=== PATIENT | female | born 1975 | race Hispanic/Latino ===

== ENCOUNTER → 2017-11-21 | Outpatient (CLI) | payer MEDICAID | END | disposition home or self-care (01) | LOC: RAH 14:50 | PROVIDERS: ATTEND Internal Medicine | DX: N63.20 Unspecified lump in the left breast, unspecified quadrant (principal); R92.2 Inconclusive mammogram | CPT/HCPCS: 76641; 77066 ==

== ENCOUNTER 2018-03-25 17:18 | Emergency (ER) | payer MEDICAID ==
[2018-03-25 18:00] LABS: APPEARANCE,URINE Cloudy (CLEAR); BILIRUBIN,URINE Negative (NEGATIVE); COLOR,URINE Dark Yellow (YELLOW); GLUCOSE, URINE (UA) Negative (NEGATIVE); KETONES,URINE Trace mg/dL (NEGATIVE); LEUKOCYTE ESTERASE ,URINE Large (NEGATIVE); NITRATE,URINE Positive (NEGATIVE); OCCULT BLOOD,URINE Moderate (NEGATIVE); PH,URINE 5.5 (5.0-8.0); PROTEIN,URINE POS 2+ (NEGATIVE); UROBILINOGEN,URINE 0.2 mg/dL (0.2-1.0)
[2018-03-25 18:08] LABS: BASOPHILS % (AUTO) 0.6 % (0.0-5.0); EOSINOPHILS % (AUTO) 1.4 % (0.0-8.0); HEMATOCRIT 41.1 % (36-48); MEAN CORPUSCULAR HEMOGLOBIN 29.8 pg (27.0-33.0); MEAN CORPUSCULAR HGB CONC 34.4 g/dL (32.0-36.0); MEAN CORPUSCULAR VOLUME 86.6 fL (79-99); MONOCYTES % (AUTO) 4.6 % (3.0-13.0); NEUTROPHILS % (AUTO) 78.4 % (40.0-77.0); PLATELET COUNT (AUTO) 355 K/uL (130-400); RED BLOOD CELL COUNT(AUTO) 4.75 MIL/uL (4.00-5.50); RED CELL DISTRIBUTION WIDTH 12.5 % (11.0-15.5); WHITE BLOOD COUNT (AUTO) 16.3 K/uL (4.8-10.8)
[2018-03-25 18:17] LABS: BACTERIA,URINE Many /HPF (None Seen); RBC,URINE None Seen /HPF (0-1)
[2018-03-25 18:18] LABS: SQUAMOUS EPITHELIAL CELL,UR 0-2 /HPF (0-2); WBC,URINE >100 /HPF (0-1)
[2018-03-25 18:20] LABS: CREATININE 0.7 mg/dL (0.5-1.5); POTASSIUM 3.9 mmol/L (3.5-5.1)
[2018-03-25 18:25] LABS: ALBUMIN 3.5 g/dL (3.5-5.0); BILIRUBIN,TOTAL 0.3 mg/dL (0.2-1.0); TOTAL PROTEIN, SERUM 7.4 g/dL (6.0-8.3)
[2018-03-25] MEDS ORDERED: TAMSULOSIN HCL 0.4 MG CAP.ER.24H ONE (18:34)
[2018-03-25] MEDS ORDERED: ONDANSETRON HCL 4 MG/2 ML VIAL ONE (18:34)
[2018-03-25] MEDS ORDERED: KETOROLAC TROMETHAMINE 15MG/ML ONE (18:34)
[2018-03-25] MEDS ORDERED: CEFTRIAXONE IV ONE (19:50)
[2018-03-25] MEDS ORDERED: DEXTROSE IV ONE (19:50)
[2018-03-25] MEDS ORDERED: 0.9% SODIUM CHLORIDE 1000 ML IV BAG IV ONE (19:50)
== END 2018-03-25 21:21 | disposition home or self-care (01) ==
LOC: EDH 17:18
DX: N12 Tubulo-interstitial nephritis, not specified as acute or chronic (principal); Z88.0 Allergy status to penicillin; M79.1 Myalgia
CPT/HCPCS: 36415; 74176; 80053; 81001; 81025; 83605; 83690; 85025; 87088; 87186; 96374; 96375; 99285; J0696 ×2; J1885 ×2; J2405; J7030 ×2

== ENCOUNTER 2018-12-28 13:12 | Emergency (ER) | payer MEDICAID | END 2018-12-28 14:47 | disposition home or self-care (01) | LOC: EDH 13:12 | DX: R07.0 Pain in throat (principal); E11.9 Type 2 diabetes mellitus without complications; J45.909 Unspecified asthma, uncomplicated; Z90.49 Acquired absence of other specified parts of digestive tract; Z79.4 Long term (current) use of insulin; Z88.0 Allergy status to penicillin | CPT/HCPCS: 70490 ==

== ENCOUNTER 2019-12-13 04:49 | Emergency (ER) | payer MEDICAID ==
[2019-12-13 05:12] LABS: BASOPHILS % (AUTO) 0.6 % (0.0-5.0); EOSINOPHILS % (AUTO) 4.8 % (0.0-8.0); HEMATOCRIT 43.1 % (36-48); LYMPHOCYTES % (AUTO) 33.6 % (21.0-51.0); MEAN CORPUSCULAR HEMOGLOBIN 29.2 pg (27.0-33.0); MEAN CORPUSCULAR HGB CONC 32.5 g/dL (32.0-36.0); MEAN CORPUSCULAR VOLUME 89.8 fL (79-99); MONOCYTES % (AUTO) 5.9 % (3.0-13.0); NEUTROPHILS % (AUTO) 54.8 % (40.0-77.0); PLATELET COUNT (AUTO) 330 K/uL (130-400); RED CELL DISTRIBUTION WIDTH 12.8 % (11.0-15.5); WHITE BLOOD COUNT (AUTO) 11.1 K/uL (4.8-10.8)
[2019-12-13 05:23] LABS: CREATININE 0.6 mg/dL (0.5-1.5); POTASSIUM 3.2 mmol/L (3.5-5.1)
[2019-12-13 05:29] LABS: ALBUMIN 3.4 g/dL (3.5-5.0); BILIRUBIN,TOTAL 0.5 mg/dL (0.2-1.0)
[2019-12-13] MEDS ORDERED: BENZONATATE 100 MG CAPSULE PO ONE (05:35)
[2019-12-13] MEDS ORDERED: POTASSIUM BICARB/CIT AC 25 MEQ TABLET.EFF ONE (05:37)
[2019-12-13] MEDS ORDERED: IPRATROPIUM/ALBUTEROL SULFATE 3 ML SOLUTION IH ONE (06:31)
== END 2019-12-13 06:46 | disposition home or self-care (01) ==
LOC: EDH 04:49
DX: J20.9 Acute bronchitis, unspecified (principal); E11.9 Type 2 diabetes mellitus without complications; J45.909 Unspecified asthma, uncomplicated; M79.7 Fibromyalgia; L93.0 Discoid lupus erythematosus; Z88.0 Allergy status to penicillin
CPT/HCPCS: 36415; 71045; 80053; 85025; 87804; 94640

== ENCOUNTER 2023-03-07 23:27 | Emergency (ER) | payer MEDICAID ==
[~2023-03-07] VITALS: Ht 165.1 cm; Wt 90.7 kg
[2023-03-08] MEDS ORDERED: LORAZEPAM 2 MG/ML 1 ML VIAL IVP ONE
[2023-03-08] MEDS ORDERED: KETOROLAC 15MG/ML VIAL (15MG/ML) IV ONE
[2023-03-08 00:09] LABS: BASOPHILS % (AUTO) 0.3 % (0.0-5.0); EOSINOPHILS % (AUTO) 0.2 % (0.0-8.0); HEMATOCRIT 44.2 % (36-48); LYMPHOCYTES % (AUTO) 17.1 % (21.0-51.0); MEAN CORPUSCULAR HEMOGLOBIN 29.2 pg (27.0-33.0); MEAN CORPUSCULAR HGB CONC 32.4 g/dL (32.0-36.0); MEAN CORPUSCULAR VOLUME 90.4 fL (79-99); MONOCYTES % (AUTO) 4.1 % (3.0-13.0); NEUTROPHILS % (AUTO) 77.9 % (40.0-77.0); PLATELET COUNT (AUTO) 289 K/uL (130-400); RED BLOOD CELL COUNT(AUTO) 4.89 MIL/uL (4.00-5.50); RED CELL DISTRIBUTION WIDTH 12.6 % (11.0-15.5); WHITE BLOOD COUNT (AUTO) 12.2 K/uL (4.8-10.8)
[2023-03-08 00:25] LABS: CREATININE 0.6 mg/dL (0.5-1.5)
[2023-03-08 00:27] LABS: APPEARANCE,URINE CLEAR (CLEAR); BILIRUBIN,URINE NEGATIVE (NEGATIVE); COLOR,URINE LIGHT-YELLOW (YELLOW); GLUCOSE, URINE (UA) >=1000 mg/dL (NEGATIVE); HCG,QUALITATIVE URINE NEGATIVE (NEGATIVE); KETONES,URINE 5 mg/dL (NEGATIVE); LEUKOCYTE ESTERASE ,URINE NEGATIVE Leu/uL (NEGATIVE); NITRATE,URINE NEGATIVE (NEGATIVE); OCCULT BLOOD,URINE NEGATIVE (NEGATIVE); PROTEIN,URINE 20 mg/dL (NEGATIVE); UROBILINOGEN,URINE 0.2 mg/dL (0.2-1.0)
[2023-03-08 00:29] LABS: MUCUS,URINE RARE LPF (None Seen); RBC,URINE 0-1 /HPF (0-1); SQUAMOUS EPITHELIAL CELL,UR RARE /HPF (0-2)
[2023-03-08 00:30] LABS: ALBUMIN 3.8 g/dL (3.5-5.0); TOTAL PROTEIN, SERUM 7.6 g/dL (6.0-8.3)
[2023-03-08] MEDS ORDERED: POTASSIUM BICARB/CIT AC 25 MEQ TABLET.EFF PO ONE (01:00)
[2023-03-08 01:54] VITALS: BP 123/65
[2023-03-08] MEDS ORDERED: HYDROCODONE/ACETAMINOPHEN 5/325 MG TAB PO ONE (02:00)
[2023-03-08] MEDS ORDERED: TRAM100T40 PO (02:04)
== END 2023-03-08 03:32 | disposition home or self-care (01) ==
LOC: EEVIPCON 23:27 → EDH 23:27
DX: S00.531A Contusion of lip, initial encounter (principal); T74.21XA Adult sexual abuse, confirmed, initial encounter; E11.9 Type 2 diabetes mellitus without complications; E78.00 Pure hypercholesterolemia, unspecified; Z88.8 Allergy status to other drugs, medicaments and biological substances; X58.XXXA Exposure to other specified factors, initial encounter; Y93.89 Activity, other specified; Y92.098 Other place in other non-institutional residence as the place of occurrence of the external cause; Y99.8 Other external cause status
CPT/HCPCS: 99285; 71045; 80053; 85025; 81001; 81025; 36415; 73521; 73030 ×2; 70450; 96374; 96375; 73600; 72125; J2060; J1885

== ENCOUNTER 2023-04-03 01:00 | Observation (INO) | payer MEDICAID ==
[~2023-04-03] VITALS: Ht 165.1 cm; Wt 93.2 kg
[~2023-04-03 01:00] MED LIST: TRAM100T40 PO
[2023-04-03 01:54] LABS: BASOPHILS % (AUTO) 0.3 % (0.0-5.0); EOSINOPHILS % (AUTO) 1.2 % (0.0-8.0); HEMATOCRIT 39.2 % (36-48); LYMPHOCYTES % (AUTO) 32.7 % (21.0-51.0); MEAN CORPUSCULAR HEMOGLOBIN 29.7 pg (27.0-33.0); MEAN CORPUSCULAR HGB CONC 33.7 g/dL (32.0-36.0); MEAN CORPUSCULAR VOLUME 88.1 fL (79-99); MONOCYTES % (AUTO) 5.3 % (3.0-13.0); PLATELET COUNT (AUTO) 303 K/uL (130-400); RED BLOOD CELL COUNT(AUTO) 4.45 MIL/uL (4.00-5.50); RED CELL DISTRIBUTION WIDTH 12.3 % (11.0-15.5); WHITE BLOOD COUNT (AUTO) 11.3 K/uL (4.8-10.8)
[2023-04-03] MEDS ORDERED: ONDANSETRON 4MG INJ IVP ONE (02:00)
[2023-04-03] MEDS ORDERED: 0.9%NACL 1000ML 1,000 ML IV ONE (02:00)
[2023-04-03 02:03] LABS: APPEARANCE,URINE CLEAR (CLEAR); BILIRUBIN,URINE NEGATIVE (NEGATIVE); COLOR,URINE LIGHT-YELLOW (YELLOW); GLUCOSE, URINE (UA) >=1000 mg/dL (NEGATIVE); KETONES,URINE 10 mg/dL (NEGATIVE); LEUKOCYTE ESTERASE ,URINE 25 Leu/uL (NEGATIVE); NITRATE,URINE NEGATIVE (NEGATIVE); OCCULT BLOOD,URINE NEGATIVE (NEGATIVE); PH,URINE 5.5 (5.0-8.0); PROTEIN,URINE 10 mg/dL (NEGATIVE); UROBILINOGEN,URINE 0.2 mg/dL (0.2-1.0)
[2023-04-03 02:05] LABS: CREATININE 0.6 mg/dL (0.5-1.5); POTASSIUM 3.6 mmol/L (3.5-5.1)
[2023-04-03 02:09] LABS: ALBUMIN 3.4 g/dL (3.5-5.0); MUCUS,URINE RARE LPF (None Seen); SQUAMOUS EPITHELIAL CELL,UR RARE /HPF (0-2); TOTAL PROTEIN, SERUM 6.8 g/dL (6.0-8.3)
[2023-04-03] MEDS ORDERED: MORPHINE 4 MG SYG ONE (02:17)
[2023-04-03] MEDS ORDERED: IOHEXOL 350 MG/ML 100ML INFUS..BTL IV ONE (02:25)
[2023-04-03] MEDS ORDERED: MORPHINE 4 MG SYG IVP ONE (02:30)
[2023-04-03] MEDS ORDERED: MORPHINE 2 MG SYG IVP PRN (04:30)
[2023-04-03] MEDS ORDERED: ACETAMINOPHEN 325 MG TAB PO PRN (04:30)
[2023-04-03 05:50] VITALS: BP 109/68
[2023-04-03] MEDS ORDERED: EMPA25TA PO (07:07)
[2023-04-03] MEDS ORDERED: METF-446 PO (07:07)
[2023-04-03] MEDS ORDERED: INSU100I47 SQ (07:07)
[2023-04-03] MEDS ORDERED: DULA1.5P SQ (07:07)
[2023-04-03] MEDS ORDERED: TRAM50TA4 PO (07:09)
[2023-04-03] MEDS ORDERED: RAMI5CAP66 PO (07:09)
[2023-04-03 08:00] VITALS: BP 109/64
[2023-04-03] MEDS ORDERED: SULFAMETHOX-TMP DS 800/160 TAB PO SCH (09:00)
[2023-04-03 12:00] VITALS: BP 125/82
[2023-04-03] MEDS ORDERED: ZOSYN 3.375GM +NS 50ML IVPB SCH (12:00)
[2023-04-03] MEDS ORDERED: ONDANSETRON 4MG INJ IV PRN (12:00)
[2023-04-03] MEDS ORDERED: 0.9%NACL 50ML IV SCH (12:00)
[2023-04-03] MEDS ORDERED: HYDRALAZINE 20MG/ML VIAL IV PRN (12:00)
[2023-04-03] MEDS ORDERED: HYDROMORPHONE 0.5 MG SYG (0.5MG/0.5ML) IVP PRN (12:00)
[2023-04-03] MEDS ORDERED: 0.9%NACL 1000ML 1,000 ML IV SCH (12:00)
[2023-04-03] MEDS ORDERED: BISACODYL 10 MG SUPP.RECT RC ONE (13:00)
[2023-04-03] MEDS ORDERED: NICOTINE 21 MG/ 24 HR PATCH TD SCH (13:00)
[2023-04-04] MEDS ORDERED: PANTOPRAZOLE 40 MG/VIAL IV SCH (09:00)
[2023-04-04] MEDS ORDERED: ENOXAPARIN SODIUM 40 MG/0.4 ML SYRINGE SQ SCH (09:00)
[2023-04-04] MEDS ORDERED: NICOTINE 21 MG/ 24 HR PATCH TD SCH (09:00)
== END 2023-04-03 17:30 | disposition home or self-care (01) ==
LOC: EDH 01:00 → EDHIP 01:01 → 4BH 05:26
PROVIDERS: ADMIT Internal Medicine; ATTEND Internal Medicine
DX: K42.9 Umbilical hernia without obstruction or gangrene (principal); R10.9 Unspecified abdominal pain; E11.9 Type 2 diabetes mellitus without complications; I10 Essential (primary) hypertension; E66.9 Obesity, unspecified; F17.210 Nicotine dependence, cigarettes, uncomplicated; K21.9 Gastro-esophageal reflux disease without esophagitis; K42.0 Umbilical hernia with obstruction, without gangrene; M79.7 Fibromyalgia; N39.0 Urinary tract infection, site not specified; Z68.34 Body mass index [BMI] 34.0-34.9, adult; Z79.899 Other long term (current) drug therapy; Z98.890 Other specified postprocedural states
CPT/HCPCS: 96361; 96365; 96375; 99285; 80053; 83690; 85025; 87040 ×2; 87088; 83605 ×2; 81001; 81025; 36415; 74177; G0378 ×13; J2270; J2543; Q9967

== ENCOUNTER 2023-04-08 11:26 | Emergency (ER) | payer MEDICAID ==
[~2023-04-08] VITALS: Ht 165.1 cm; Wt 91.6 kg
[~2023-04-08 11:26] MED LIST changes: +DULA1.5P SQ; +EMPA25TA PO; +INSU100I47 SQ; +METF-446 PO; +RAMI5CAP66 PO; +TRAM50TA4 PO
[2023-04-08] MEDS ORDERED: KETOROLAC 15MG/ML VIAL (15MG/ML) IM ONE (13:30)
[2023-04-08 15:05] VITALS: BP 103/63
== END 2023-04-08 14:52 | disposition home or self-care (01) ==
LOC: EDH 11:26
DX: S93.601A Unspecified sprain of right foot, initial encounter (principal); E11.9 Type 2 diabetes mellitus without complications; M79.7 Fibromyalgia; Z79.84 Long term (current) use of oral hypoglycemic drugs; Z90.49 Acquired absence of other specified parts of digestive tract; W01.10XA Fall on same level from slipping, tripping and stumbling with subsequent striking against unspecified object, initial encounter; Y93.89 Activity, other specified; Y92.89 Other specified places as the place of occurrence of the external cause; Y99.8 Other external cause status
CPT/HCPCS: 99284; 82948; 73600; 73630; 96372; J1885

== ENCOUNTER 2023-04-21 09:01 | Emergency (ER) | payer MEDICAID ==
[~2023-04-21] VITALS: Ht 165.1 cm; Wt 90.7 kg
[2023-04-21] MEDS ORDERED: ACETAMINOPHEN 500 MG TABLET PO ONE (12:30)
[2023-04-21 13:08] VITALS: BP 148/85
[2023-04-21] MEDS ORDERED: NAPR-1180 PO (13:36)
== END 2023-04-21 14:10 | disposition home or self-care (01) ==
LOC: EDH 09:01
DX: M79.604 Pain in right leg (principal); E11.9 Type 2 diabetes mellitus without complications; M79.7 Fibromyalgia; Z79.84 Long term (current) use of oral hypoglycemic drugs; Z90.49 Acquired absence of other specified parts of digestive tract
CPT/HCPCS: 93971

== ENCOUNTER 2023-04-24 16:18 | Emergency (ER) | payer MEDICAID ==
[~2023-04-24] VITALS: Ht 165.1 cm; Wt 92.5 kg
[~2023-04-24 16:18] MED LIST changes: +NAPR-1180 PO
[2023-04-24 16:24] VITALS: BP 118/72
== END 2023-04-24 20:09 | disposition left against medical advice (07) ==
LOC: EDH 16:18
DX: R10.9 Unspecified abdominal pain (principal); Z53.21 Procedure and treatment not carried out due to patient leaving prior to being seen by health care provider
CPT/HCPCS: 71045; 93005; 99281

== ENCOUNTER 2023-07-01 22:30 | Emergency (ER) | payer MEDICAID ==
[~2023-07-01] VITALS: Ht 165.1 cm; Wt 92.1 kg
[2023-07-01] MEDS ORDERED: 0.9%NACL 1000ML 1,000 ML IV ONE (23:00)
[2023-07-01] MEDS ORDERED: FAMOTIDINE 20MG VIAL IV ONE (23:00)
[2023-07-01] MEDS ORDERED: METOCLOPRAMIDE 10 MG/2 ML VIAL IVP ONE (23:00)
[2023-07-01] MEDS ORDERED: HYDROXYZINE 25 MG TABLET PO ONE (23:00)
[2023-07-01 23:12] LABS: BASOPHILS # (AUTO) 0.04 K/uL (0.00-0.20); BASOPHILS % (AUTO) 0.3 % (0.0-5.0); EOSINOPHILS # (AUTO) 0.14 K/uL (0.00-0.70); EOSINOPHILS % (AUTO) 1.2 % (0.0-8.0); HEMATOCRIT 39.5 % (36-48); IMMATURE GRANULOCYTE ABSOLUTE 0.04 K/uL (0-1); LYMPHOCYTES # (AUTO) 2.7 K/uL (1.0-4.8); MEAN CORPUSCULAR HEMOGLOBIN 29.6 pg (27.0-33.0); MEAN CORPUSCULAR HGB CONC 34.4 g/dL (32.0-36.0); MEAN CORPUSCULAR VOLUME 86.1 fL (79-99); MONOCYTES # (AUTO) 0.6 K/uL (0.1-1.0); NEUTROPHILS # (AUTO) 8.1 K/uL (1.8-7.7); NEUTROPHILS % (AUTO) 70.2 % (40.0-77.0); PLATELET COUNT (AUTO) 253 K/uL (130-400); RED BLOOD CELL COUNT(AUTO) 4.59 MIL/uL (4.00-5.50); RED CELL DISTRIBUTION WIDTH 12.2 % (11.0-15.5); WHITE BLOOD COUNT (AUTO) 11.5 K/uL (4.8-10.8)
[2023-07-01 23:24] LABS: COVID19 (SARS ANTIGEN RAPID) PRESUMPTIVE NEGATIVE (NEGATIVE); INFLUENZA TYPE A Negative For Type A (NEGATIVE); INFLUENZA TYPE B Negative For Type B (NEGATIVE)
[2023-07-01 23:42] LABS: CARBON DIOXIDE 26 mmol/L (21-32); CHLORIDE 101 mmol/L (101-111); CREATININE 0.8 mg/dL (0.5-1.5); GLOMERULAR FILTR. RATE CALC 90 mL/min (>90); POTASSIUM 3.9 mmol/L (3.5-5.1); SODIUM SERUM 138 mmol/L (136-145); THYROID STIMULATING HORMONE 0.62 uIU/mL (0.36-3.74); UREA NITROGEN, BLOOD 14 mg/dL (7-18)
[2023-07-01 23:43] LABS: ALCOHOL, BLOOD < 3 mg/dL (0-10); GLUCOSE,RANDOM 468 mg/dL (70-105)
[2023-07-02] LABS: ADD UA MICROSCOPIC YES; APPEARANCE,URINE CLEAR (CLEAR); BILIRUBIN,URINE NEGATIVE (NEGATIVE); COLOR,URINE COLORLESS (YELLOW); GLUCOSE, URINE (UA) >=1000 mg/dL (NEGATIVE); KETONES,URINE NEGATIVE (NEGATIVE); LEUKOCYTE ESTERASE ,URINE NEGATIVE Leu/uL (NEGATIVE); NITRATE,URINE NEGATIVE (NEGATIVE); OCCULT BLOOD,URINE NEGATIVE (NEGATIVE); PH,URINE 6.5 (5.0-8.0); PROTEIN,URINE NEGATIVE (NEGATIVE); UROBILINOGEN,URINE 0.2 mg/dL (0.2-1.0)
[2023-07-02 00:04] LABS: AMPHET/METH SCREEN,URINE NEGATIVE (NEGATIVE); BARBITURATE SCREEN, URINE NEGATIVE (NEGATIVE); BENZODIAZEPINES SCREEN,URINE NEGATIVE (NEGATIVE); CANNABINOID SCREEN,URINE NEGATIVE (NEGATIVE); COCAINE SCREEN,URINE POSITIVE (NEGATIVE); OPIATE SCREEN,URINE NEGATIVE (NEGATIVE); PHENCYCLIDINE SCREEN,URINE NEGATIVE (NEGATIVE)
[2023-07-02] MEDS ORDERED: LORAZEPAM 2 MG/ML 1 ML VIAL IVP ONE (01:00)
[2023-07-02] MEDS ORDERED: MAGNESIUM OXIDE 400 MG TABLET PO ONE (01:00)
[2023-07-02] MEDS ORDERED: INSULIN HUMULIN R 100 UNIT/ML 3ML IV ONE (01:00)
[2023-07-02] MEDS ORDERED: LACTATED RINGERS 1000ML 1,000 ML IV SCH (03:30)
[2023-07-02] MEDS ORDERED: 0.9%NACL 1000ML 1,000 ML IV SCH (04:30)
[2023-07-02 07:58] VITALS: BP 124/78; PULSE 78; RESP 18; O2SAT 98
== END 2023-07-02 08:00 | disposition home or self-care (01) ==
LOC: EDH 22:30
DX: F14.10 Cocaine abuse, uncomplicated (principal); E11.65 Type 2 diabetes mellitus with hyperglycemia; G43.909 Migraine, unspecified, not intractable, without status migrainosus; Z79.84 Long term (current) use of oral hypoglycemic drugs; Z20.822 Contact with and (suspected) exposure to COVID-19
CPT/HCPCS: 99285; 96374; 70450; 71045; 96361 ×2; 96375 ×2; 87426; 84443; 83735; 84484; 80048; 80305; 85025; 87804 ×2; 82948; 83605; 82010; 81001; 36415; 93005; J7030; J2765; J1815; J7120; J2060; S0028; J3490

== ENCOUNTER 2023-08-25 03:29 | Emergency (ER) | payer MEDICAID ==
[~2023-08-25] VITALS: Ht 165.1 cm; Wt 82.6 kg
[2023-08-25] MEDS ORDERED: ONDANSETRON 4MG INJ IVP ONE (04:00)
[2023-08-25 04:01] LABS: BASOPHILS # (AUTO) 0.03 K/uL (0.00-0.20); BASOPHILS % (AUTO) 0.3 % (0.0-5.0); EOSINOPHILS # (AUTO) 0.05 K/uL (0.00-0.70); EOSINOPHILS % (AUTO) 0.5 % (0.0-8.0); HEMATOCRIT 44.6 % (36-48); IMMATURE GRANULOCYTE ABSOLUTE 0.04 K/uL (0-1); LYMPHOCYTES # (AUTO) 3.3 K/uL (1.0-4.8); LYMPHOCYTES % (AUTO) 33.2 % (21.0-51.0); MEAN CORPUSCULAR HEMOGLOBIN 29.4 pg (27.0-33.0); MEAN CORPUSCULAR HGB CONC 33.9 g/dL (32.0-36.0); MEAN CORPUSCULAR VOLUME 86.9 fL (79-99); MONOCYTES # (AUTO) 0.4 K/uL (0.1-1.0); MONOCYTES % (AUTO) 4.3 % (3.0-13.0); NEUTROPHILS # (AUTO) 6.1 K/uL (1.8-7.7); NEUTROPHILS % (AUTO) 61.3 % (40.0-77.0); PLATELET COUNT (AUTO) 272 K/uL (130-400); RED BLOOD CELL COUNT(AUTO) 5.13 MIL/uL (4.00-5.50); RED CELL DISTRIBUTION WIDTH 12.1 % (11.0-15.5)
[2023-08-25 04:09] LABS: CREATININE 0.6 mg/dL (0.5-1.5); POTASSIUM 3.7 mmol/L (3.5-5.1)
[2023-08-25 04:14] LABS: ALBUMIN 3.6 g/dL (3.5-5.0); BILIRUBIN,TOTAL 0.6 mg/dL (0.2-1.0); TOTAL PROTEIN, SERUM 7.3 g/dL (6.0-8.3)
[2023-08-25 04:23] LABS: HCG,QUALITATIVE URINE NEGATIVE (NEGATIVE)
[2023-08-25 04:24] LABS: APPEARANCE,URINE CLEAR (CLEAR); BILIRUBIN,URINE NEGATIVE (NEGATIVE); COLOR,URINE LIGHT-YELLOW (YELLOW); GLUCOSE, URINE (UA) >=1000 mg/dL (NEGATIVE); KETONES,URINE 20 mg/dL (NEGATIVE); LEUKOCYTE ESTERASE ,URINE NEGATIVE Leu/uL (NEGATIVE); NITRATE,URINE NEGATIVE (NEGATIVE); OCCULT BLOOD,URINE NEGATIVE (NEGATIVE); PH,URINE 5.5 (5.0-8.0); PROTEIN,URINE 10 mg/dL (NEGATIVE); UROBILINOGEN,URINE 0.2 mg/dL (0.2-1.0)
[2023-08-25 04:26] LABS: ADD UA MICROSCOPIC YES
[2023-08-25] MEDS ORDERED: IOHEXOL-350 75 ML VIAL IV ONE (04:30)
[2023-08-25 04:37] LABS: BACTERIA,URINE RARE /HPF (None Seen); MUCUS,URINE RARE LPF (None Seen)
[2023-08-25] MEDS ORDERED: MAG/ALUM/SIMETH 30 ML UDCUP PO ONE (06:30)
[2023-08-25] MEDS ORDERED: HYDROMORPHONE 1 MG INJ IVP ONE (06:30)
[2023-08-25 07:10] VITALS: BP 126/75; PULSE 78; RESP 18; O2SAT 98
== END 2023-08-25 07:11 | disposition home or self-care (01) ==
LOC: EDH 03:29
DX: K42.9 Umbilical hernia without obstruction or gangrene (principal); Z79.84 Long term (current) use of oral hypoglycemic drugs; Z90.49 Acquired absence of other specified parts of digestive tract
CPT/HCPCS: 99285; 74177; 96374; 80053; 83690; 85025; 81001; 81025; 36415; J2405; Q9967

== ENCOUNTER 2023-10-05 07:01 | Emergency (ER) | payer MEDICAID ==
[~2023-10-05] VITALS: Ht 165.1 cm; Wt 85.7 kg
[2023-10-05] MEDS ORDERED: MORPHINE 4 MG SYG IM ONE (08:30)
[2023-10-05] MEDS ORDERED: TETANUS/DIPHTHERIA TOXOID [ADULT] 0.5 ML VIAL IM ONE (08:30)
[2023-10-05] MEDS ORDERED: [UNRECOGNIZED DRUG - CODE] PO (08:46)
[2023-10-05 09:15] VITALS: BP 142/78; PULSE 64; RESP 20; O2SAT 99
== END 2023-10-05 09:19 | disposition home or self-care (01) ==
LOC: EDH 07:01
DX: S96.811A Strain of other specified muscles and tendons at ankle and foot level, right foot, initial encounter (principal); D48.0 Neoplasm of uncertain behavior of bone and articular cartilage; M21.371 Foot drop, right foot; E11.9 Type 2 diabetes mellitus without complications; F17.200 Nicotine dependence, unspecified, uncomplicated; Z79.84 Long term (current) use of oral hypoglycemic drugs; Z79.899 Other long term (current) drug therapy; Z98.890 Other specified postprocedural states; W18.39XA Other fall on same level, initial encounter; Y93.89 Activity, other specified; Y92.89 Other specified places as the place of occurrence of the external cause; Y99.8 Other external cause status
CPT/HCPCS: 99284; 90714; 73610; 73630; 73562; 96372; 90471; J2270

== ENCOUNTER 2025-11-01 14:25 | Emergency (ER) | payer MEDICAID ==
[~2025-11-01] VITALS: Ht 162.6 cm; Wt 81.6 kg
[2025-11-01] MEDS: FAMOTIDINE 20MG VIAL IV ONE (14:37)
--- NOTE | 2025-11-01 14:41 | EKG ---
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
[2025-11-01 15:02] LABS: IMMATURE GRANULOCYTE ABSOLUTE 0.03 K/uL (0-1); NUCLEATED RED BLOOD CELLS 0.0 % (0.0-0.19); PLATELET COUNT (AUTO) 339 K/uL (130-400); RED BLOOD CELL COUNT(AUTO) 4.74 MIL/uL (4.00-5.50); RED CELL DISTRIBUTION WIDTH 12.6 % (11.0-15.5); WHITE BLOOD COUNT (AUTO) 10.7 K/uL (4.8-10.8)
--- NOTE | 2025-11-01 15:26 | ERN ---
General Chief Complaint: Allergic Reaction Stated Complaint: BEE STING Time Seen by MD: 14:27 Source: patient History of Present Illness Initial Comments PATIENT IS A 50-YEAR-OLD FEMALE COMING IN COMPLAINING OF A BEE STING TO LEFT UPPER ARM. SHE STATES THAT HE IS ALLERGIC TO BEES COMING IN WITH CHEST DISCOMFORT. Allergies: Coded Allergies: No Known Drug Allergies (Unverified Allergy, Unknown, 04/03/23) Home Meds Active Scripts Naproxen Sodium (Naprelan) 750 Mg Tbmp.24hr, 750 MG PO DAILY, #7 TAB.SR 0 Refills Prov:JHONY TELLO MD 10/05/23 Naproxen (Naprosyn) 500 Mg Tablet, 500 MG PO BIDPC for 10 Days, #20 TAB 0 Refills Prov:JULIENNE MILLER 04/21/23 Tramadol HCl (Tramadol HCl) 100 Mg Tablet, 100 MG PO TID for SEVERE PAIN, #15 TAB Prov:JANE TERESA MD 03/08/23 Reported Medications Tramadol Hcl (Tramadol HCl) 50 Mg Tablet, 1 TAB PO Q6HPRN PRN for MODERATE PAIN (4-6) 04/03/23 Ramipril (Ramipril) 5 Mg Capsule, 2 CAP PO DAILY 04/03/23 Dulaglutide (Trulicity) 1.5 Mg/0.5 Ml Pen.injctr, 1.5 MG SQ QWEEK ON Mondays04/03/23 Empagliflozin (Jardiance) 25 Mg Tablet, 1 TAB PO DAILY 04/03/23 Insulin Aspart (Insulin Aspart Flexpen) 100 Unit/1 Ml Insuln.pen, 30 UNITS SQ ACBKFST 04/03/23 Metformin HCl (Metformin HCl) 1,000 Mg Tablet, 1 TAB PO DAILYBKFST 04/03/23 Past Medical History Past Medical History: CAD, Diabetes-Type II, Hypertension, Hypotension, Other Medical History Other: HX OF MENINGITIS, FIBROMYALGIA Past Surgical History: Cholecystectomy Surgical History Other: BACK surgery, CARDIAC STENTS Family History Family History: Negative Social History Social History: Smokers, Drugs, Negative, Lives with family Female( History) History: Not Applicable ROS Dictation CONSTITUTIONAL: NO CHILLS, NO FEVER, NO WEAKNESS, NO DIAPHORESIS, NO MALAISE. HEAD/FACE: NO SIGNS OF TRAUMA. EENT: NO EYE PAIN, NO BLURRED VISION, NO TEARING, NO DOUBLE VISION, NO EAR PAIN, NO EAR DISCHARGE, NO NOSE PAIN, NO NASAL CONGESTION, NO THROAT PAIN, NO THROAT SWELLING, NO MOUTH PAIN. RESPIRATORY: NO COUGH, NO ORTHOPNEA, NO SOB, NO STRIDOR, NO WHEEZING. CARDIOVASCULAR: CHEST PAIN, NO EDEMA, NO PALPITATIONS, NO SYNCOPE. GASTROINTESTINAL/ABDOMINAL: NO ABDOMINAL PAIN, NO CONSTIPATION, NO DIARRHEA, NO NAUSEA, NO VOMITING. GENITOURINARY: NO ABNORMAL DISCHARGE, NO DYSURIA, NO FREQUENT URINATION, NO HEMATURIA. NO COMPLAINTS OF PAIN IN THE GENITALS. MUSCULOSKELETAL: NO BACK PAIN, NO GOUT, NO JOINT PAIN, NO JOINT SWELLING, NO MUSCLE PAIN, NO MUSCLE STIFFNESS, NO NECK PAIN. INTEGUMENTARY: NO CHANGE IN COLOR, NO CHANGE IN HAIR/NAILS, NO DRYNESS, NO LESION, NO LUMPS, NO RASH. NEUROLOGICAL/PSYCH: NO ANXIETY, NOT DEPRESSED, NO EMOTIONAL PROBLEM, NO HEADACHE, NO NUMBNESS, NO PRE-EXISTING DEFICIT, NO HISTORY OF SEIZURES, NO TREMORS, NO WEAKNESS. HEMATOLOGIC/LYMPHATIC: NOT ANEMIC, NO HISTORY OF BLOOD CLOTS, NO APPARENT BLEEDING, NO BRUISING, GLANDS NOT SWOLLEN. ALL SYSTEMS NEGATIVE, EXCEPT NOTED. Physical Exam Physical Exam Dictation VITAL SIGNS: REVIEWED. GENERAL APPEARANCE: ALERT, ORIENTED X3, NO ACUTE DISTRESS, OBESE. HEAD AND FACE: NON-TRAUMATIC. EYES: PERRL, PINK CONJUNCTIVAS, EYELID NO TRAUMA, ANTERIOR CHAMBER CLEAR. EARS: PINNAS INTACT AND NO SIGNS OF TRAUMA OR ERYTHEMA. EAR CANALS CLEAR AND NO DISCHARGE. TMS NO ERYTHEMA. NOSE: NO DISCHARGE, NO BLEEDING. OROPHARYNX: MOUTH NORMAL, TEETH NO CARIES, TONGUE PINK. PHARYNX CLEAR, NO ERYTHEMA. TONSILS NO EXUDATES, NO ABSCESSES NOTED. MUCOUS MEMBRANE MOIST. NECK: SUPPLE, NON-TENDER, NO THYROMEGALY, NO MASSES, NO JVD, NO BRUITS. BREAST: DEFERRED. CHEST: NO TENDERNESS, NO CREPITUS, NO PARADOXICAL MOVEMENT, NO RETRACTIONS. LUNGS: CLEAR, WELL-VENTILATED, SYMMETRIC, NO RALES, NO WHEEZING, NO RHONCHI, NO STRIDOR, GOOD BREATH SOUNDS BILATERALLY. HEART: REGULAR RATE, REGULAR RHYTHM, NO MURMUR, NO GALLOPS. VASCULAR: NO PERIPHERAL EDEMA. ABDOMEN: SOFT, POSITIVE BOWEL SOUNDS, NONDISTENDED, NO GUARDING, NONTENDER, NO REBOUND, NO MASSES NO HEPATOMEGALY, NO SPLENOMEGALY, NO ROWLEY'S SIGN, NO HERNIAS. RECTAL: DEFERRED. GENITAL: DEFERRED. NEUROLOGICAL: NORMAL SPEECH, GROSS MOTOR FUNCTION INTACT, GROSS SENSORY FUNCTION INTACT. MUSCULOSKELETAL: NECK NONTENDER, FULL RANGE OF MOTION, BACK NONTENDER, FULL RANGE OF MOTION. EXTREMITIES: NONTENDER, FULL RANGE OF MOTION. SKIN: COLOR PINK, DRY, NO TURGOR, NO RASH, NO LACERATIONS, NO ABRASIONS, NO CONTUSIONS. LYMPHATICS: DEFERRED. Results Laboratory and Microbiology Lab and Micro Result Laboratory Tests Test 11/01/25 14:54 White Blood Count 10.7 K/uL (4.8-10.8) Red Blood Count 4.74 MIL/uL (4.00-5.50) Hemoglobin 13.9 g/dL (12.0-16.0) Hematocrit 42.7 % (36-48) Mean Corpuscular Volume 90.1 fL (79-99) Mean Corpuscular Hemoglobin 29.3 pg (27.0-33.0) Mean Corpuscular Hemoglobin Concent 32.6 g/dL (32.0-36.0) Red Cell Distribution Width 12.6 % (11.0-15.5) Platelet Count 339 K/uL (130-400) Mean Platelet Volume 9.4 fL (7.5-10.5) Immature Granulocyte % (Auto) 0.3 % (0-1) Neutrophils (%) (Auto) 46.5 % (40.0-77.0) Lymphocytes (%) (Auto) 44.0 % (21.0-51.0) Monocytes (%) (Auto) 6.9 % (3.0-13.0) Eosinophils (%) (Auto) 1.8 % (0.0-8.0) Basophils (%) (Auto) 0.5 % (0.0-5.0) Neutrophils # (Auto) 5.0 K/uL (1.8-7.7) Lymphocytes # (Auto) 4.7 K/uL (1.0-4.8) Monocytes # (Auto) 0.7 K/uL (0.1-1.0) Eosinophils # (Auto) 0.19 K/uL (0.00-0.70) Basophils # (Auto) 0.05 K/uL (0.00-0.20) Absolute Immature Granulocyte (auto 0.03 K/uL (0-1) Nucleated Red Blood Cells 0.0 % (0.0-0.19) Labs Reviewed?: Yes EKG/XRAY/US/CT/MRI EKG Comment 11/01/2025 TIME 2:20 P.M. VENTRICULAR RATE [address] WAVE ELEVATION OR DEPRESSION MDM MDM: DIFFERENTIAL DIAGNOSIS: BEE STING, ALLERGIC REACTION, RATIONALE: TESTS CONSIDERED AND ORDERED SECONDARY TO SHARED DECISION MAKING INCLUDE: PREVIOUS OUTSIDE RECORDS REVIEWED: OLD ER VISITS. RISK OF COMPLICATION AND/OR MORBIDITY OR MORTALITY OF PATIENT MANAGEMENT: NONE MEDICATIONS-PER MEDICATION RECONCILIATION NEED FOR HOSPITALIZATION: PATIENT DOES NOT MEET CRITERIA FOR HOSPITALIZATION. NEED FOR EMERGENCY MAJOR/MINOR SURGERY: NO PATIENT IS A 50-YEAR-OLD FEMALE COMING IN COMPLAINING OF A BEE STING TO LEFT UPPER ARM. ON PHYSICAL EXAM THERE IS NO STINGER LEFT BEHIND. PATIENT WAS COMPLAINING OF CHEST PAIN AND ITCHINESS WELL SHORTNESS OF BREATH. PATIENT RECEIVED EPINEPHRINE SUBCUTANEOUS WELL SOLU-MEDROL PEPCID AND BENADRYL SHE STATES HER SYMPTOMS HAVE COMPLETELY SUBSIDED. PATIENT WILL BE DISCHARGED IN STABLE CONDITION WITH A DIAGNOSIS OF BEE STING AND ALLERGIC REACTION. MEDICATION WILL BE PROVIDED FOR SYMPTOMATIC RELIEF. ALSO ADVISED HER APPROPRIATE FOLLOW UP WITH PCP FOR ONGOING EVALUATION AND MANAGEMENT. ED Course Orders Procedure Category Date Status Time Cbc With Differential LAB 11/01/25 Complete 14:27 Chest 1vw RAD 11/01/25 Taken 14:27 12 Lead Ekg Tracing- EKG 11/01/25 Complete Technical 14:27 Troponin I High LAB 11/01/25 In Process Sensitivity 14:27 Basic Metabolic Panel LAB 11/01/25 In Process 14:27 Methylprednisolone PHA 11/01/25 Complete Succ 125mg (Solu-Medr 14:30 Diphenhydramine Hcl PHA 11/01/25 Complete (Benadryl Inj) 14:30 Famotidine 20mg Vial PHA 11/01/25 Complete (Pepcid 20mg Vial) 14:30 Epinephrine Pf 1mg PHA 11/01/25 Complete (1:1,000) (Adrenaline 15:00 Current Medications Medications (Trade) Dose Ordered Sig/Suzanne Route PRN Reason Start Time Stop Time Status Last Admin Dose Admin Diphenhydramine HCl (BENAdryl INJ) 25 mg ONCE ONCE IV 11/01/25 14:30 128/25 14:31 DC 11/01/25 14:37 Epinephrine HCl (ADRENaline PF 1MG AMP) 0.3 mg ONCE ONCE IM 11/01/25 15:00 11/01/25 15:01 DC Famotidine (Pepcid 20mg Vial) 20 mg ONCE ONCE IV 11/01/25 14:30 11/01/25 14:31 DC 11/01/25 14:37 Methylprednisolone Sodium Succinate (Solu-medROL 125MG) 125 mg ONCE ONCE IVP 11/01/25 14:30 11/01/25 14:31 DC 11/01/25 14:37 Vital Signs Date Time Temp Pulse Resp B/P (MAP) Pulse Ox O2 Delivery O2 Flow Rate FiO2 11/01/25 15:02 99.0 91 20 125/56 95 Room Air* 0 21 DX & DISP Disposition: Discharge Departure Impression: Primary Impression: Bee sting Additional Impression: Allergic reaction Condition: Stable Scripts Epinephrine (Epipen 2-Mehul) 0.3 Mg/0.3 Ml Auto.injct 1 SYR IM ONCE for 1 Day, #1 PACKET 0 Refills Prov: BOBBY CASTAÑEDA MD 11/01/25 Additional Instructions: FOLLOW-UP WITH PRIMARY CARE PROVIDER IN 1 TO 2 DAYS. TAKE MEDICATIONS DIRECTED HERE IN THE EMERGENCY ROOM. OKAY TO CONTINUE HOME MEDICATIONS UNLESS OTHERWISE DISCUSSED DURING YOUR VISIT IN THE EMERGENCY ROOM TODAY. RETURN TO YOUR NEAREST EMERGENCY ROOM IF SYMPTOMS WORSEN OR IF THERE IS NO IMPROVEMENT. CALL 911 IF YOU NEED IMMEDIATE ASSISTANCE. TAKE TYLENOL [id number] NEEDED AND IF NO CONTRAINDICATIONS ARE PRESENT. INCREASE ORAL HYDRATION. A WOUND CULTURE OR URINE CULTURE WAS ORDERED HERE IN THE EMERGENCY ROOM DEPARTMENT PLEASE FOLLOW-UP WITH PRIMARY CARE PROVIDER AND ADVISE THEM TO GET REPORTS FROM OUR FACILITY. IF YOU HAD ANY ARSLAN WRAP/SPLINTS THAT WERE APPLIED HERE, PLEASE DO NOT REMOVE THEM UNTIL YOU SEE YOUR PRIMARY CARE OR SPECIALTY. REFERRALS: Referrals: MARVA MASSEY MD (PCP) Time of Disposition: 15:26 BOBBY CASTAÑEDA MD Nov 01, 2025 15:26
[2025-11-01 15:36] LABS: CREATININE 0.7 mg/dL (0.5-1.0); GLOMERULAR FILTR. RATE CALC 104.0 mL/min (>90); GLUCOSE,RANDOM 256.0 mg/dL (70-105); SODIUM SERUM 137.0 mmol/L (136-145); UREA NITROGEN, BLOOD 21.0 mg/dL (7-18)
--- NOTE | 2025-11-01 15:52 | HMCIMG ---
EXAM: CR Chest, 1 View. CLINICAL HISTORY: cp COMPARISON: None provided. FINDINGS: LUNGS: There is no mass, infiltrate, or acute pulmonary abnormality. PLEURAL SPACES: No pleural effusion or pneumothorax. MEDIASTINUM: Cardiac size and mediastinal contours within normal limits. BONES: No acute osseous abnormality. IMPRESSION: No acute cardiopulmonary pathology is evident. /[place]
--- NOTE | 2025-11-01 16:14 | NUR ---
DAUGHTER CONTACTED AT THIS TIME. DAUGHTER NOTIFIED SHE IS READY FOR DC. DAUGHTER STATES SHE IS ON HER WAY.
[2025-11-01 16:23] VITALS: BP 105/65; PULSE 88; RESP 20; TEMP 98.6; O2SAT 96
== END 2025-11-01 16:24 | disposition home or self-care (01) ==
LOC: EDH 14:25
DX: T63.441A Toxic effect of venom of bees, accidental (unintentional), initial encounter (principal); E11.9 Type 2 diabetes mellitus without complications; I25.10 Atherosclerotic heart disease of native coronary artery without angina pectoris; I10 Essential (primary) hypertension; M79.7 Fibromyalgia; F17.200 Nicotine dependence, unspecified, uncomplicated; Z79.84 Long term (current) use of oral hypoglycemic drugs; Z86.61 Personal history of infections of the central nervous system; Z90.49 Acquired absence of other specified parts of digestive tract; Z95.5 Presence of coronary angioplasty implant and graft; Y92.89 Other specified places as the place of occurrence of the external cause
CPT/HCPCS: 99285; 96374; 96375; 71045; 84484; 80048; 85025; 36415; 93005; 96372; J2919; J1200; J1308; J0169